=== PATIENT | male | born 1945 | race Caucasian/White ===

== ENCOUNTER 2024-07-18 11:02 | Emergency (ER) | payer MEDICARE, OTHER ==
[~2024-07-18] VITALS: Ht 167.6 cm; Wt 119.0 kg
[~2024-07-18 11:02] MED LIST: ALLOPURINOL300 MG PO; ASPIRIN325 MG PO; CINNAMON500 MG; CLONIDINE HCL0.2 MG PO; COQ-10100 MG PO; COUMADIN6 MG PO; ELIQUIS5 MG PO; FUROSEMIDE40 MG PO; GABAPENTIN100 MG PO; GLIMEPIRIDE1 MG PO; GLYBURIDE5 MG PO; HUMALOG100 UNITS/ SC; JARDIANCE25 MG PO; LANOXIN125 MCG PO; LANTUS 3ML100 UNITS/ SQ; LEVEMIR100 UNIT/1 SC; LIPITOR40 MG PO; LOSARTAN POTAS100 MG PO; MAGNESIUM CIT; MAGNESIUM CITR100 MG PO; METOPROLOL SUCC25 MG PO; METOPROLOL TART50 MG PO; NEURONTIN100 MG PO; NIASPAN500 MG PO; NOVOLOG MI100 UNIT/1 SC; NOVOLOG100 UNIT/1 SC; OMEGA-31000 MG PO; TUMERIC; VICTOZA 2-0.6 MG/0.1 PO; VISION VITAMIN1 EAC1 PO; VITAMIN D35000 UNI1 PO; WARFARIN SODIUM3 MG PO
[2024-07-18] MEDS ORDERED: CLEOCIN HCL150 MG PO (12:13)
[2024-07-18 12:27] VITALS: PULSE 71; RESP 18; TEMP 97.3; O2SAT 95
[2024-07-18] MEDS ORDERED: ASPIRIN EC81 MG PO (13:50)
[2024-07-18] MEDS ORDERED: CLONIDINE HCL0.1 MG PO (13:50)
== END 2024-07-18 12:27 | disposition home or self-care (01) ==
LOC: FSED 11:13
DX: L02.415 Cutaneous abscess of right lower limb (principal); I10 Essential (primary) hypertension; E11.9 Type 2 diabetes mellitus without complications; E11.40 Type 2 diabetes mellitus with diabetic neuropathy, unspecified; I48.91 Unspecified atrial fibrillation; I25.10 Atherosclerotic heart disease of native coronary artery without angina pectoris; E78.5 Hyperlipidemia, unspecified; K21.9 Gastro-esophageal reflux disease without esophagitis; Z95.5 Presence of coronary angioplasty implant and graft
CPT/HCPCS: 10060; 99283

== ENCOUNTER 2024-10-22 09:45 | Emergency (ER) | payer MEDICARE, OTHER ==
[~2024-10-22] VITALS: Ht 167.6 cm; Wt 116.8 kg
[~2024-10-22 09:45] MED LIST changes: +ASPIRIN EC81 MG PO; +CLEOCIN HCL150 MG PO; +CLONIDINE HCL0.1 MG PO
[2024-10-22 09:50] VITALS: PULSE 85; RESP 18; TEMP 98.5; O2SAT 96
[2024-10-22] MEDS ORDERED: AZITHROMYCIN250 MG PO (10:28)
== END 2024-10-22 10:33 | disposition home or self-care (01) ==
LOC: FSED 09:49
DX: R09.89 Other specified symptoms and signs involving the circulatory and respiratory systems (principal); J06.9 Acute upper respiratory infection, unspecified; R05.9 Cough, unspecified; I10 Essential (primary) hypertension; E11.40 Type 2 diabetes mellitus with diabetic neuropathy, unspecified; I48.91 Unspecified atrial fibrillation; I25.10 Atherosclerotic heart disease of native coronary artery without angina pectoris; E78.5 Hyperlipidemia, unspecified; K21.9 Gastro-esophageal reflux disease without esophagitis; Z11.52 Encounter for screening for COVID-19; Z95.5 Presence of coronary angioplasty implant and graft
CPT/HCPCS: 0223U; 83518; 87400; 87420; 99284